=== PATIENT | male | born 2000 | race Two or more races ===

== ENCOUNTER → 2019-02-12 00:02 | Emergency (ER) | payer OTHER ==
--- NOTE | 2019-02-12 02:18 | ED ---
Upper Extremity Pain - HPI Summary HPI Summary: A 18 y/o male presents to [facility] with a chief complaint of right thumb pain the night of 02/11/19. He reports that he was playing basketball when he jammed his finger. At triage he rated his pain as a 4/10 in severity. The patient has no other complaints. - History of Current Complaint Chief Complaint: EDExtremityUpper Stated Complaint: "RIGHT THUMB INJURY" PER PT Time Seen by Provider: 02/12/19 01:58 Hx Obtained From: Patient Mechanism Of Injury: Other - jammed while playing basketball Onset/Duration: Started Hours Ago, Still Present Timing: Constant, Lasting Hours Severity Initially: Moderate Severity Currently: Moderate Pain Location: Finger - right thumb Character: Unable to Describe Aggravating Factor(s): Nothing Alleviating Factor(s): Nothing Associated Signs & Symptoms: Negative: Fever - Allergies/Home Medications Allergies/Adverse Reactions: Allergies Allergy/AdvReac Type Severity Reaction Status Date / Time codeine Allergy Vomiting Verified 02/12/19 00:08 Home Medications: Home Medications NK [No Home Medications Reported] 02/12/19 [History Confirmed 02/12/19] PMH/Surg Hx/FS Hx/Imm Hx Endocrine/Hematology History: Denies: Hx Diabetes Cardiovascular History: Denies: Hx Hypertension Sensory History: Denies: Hx Deafness - Surgical History Surgery Procedure, Year, and Place: none reported Infectious Disease History: No Infectious Disease History: Reports: Traveled Outside the in Last 30 Days - [facility] - Family History Known Family History: Positive: Diabetes Negative: Hypertension - Social History Alcohol Use: None Substance Use Type: Reports: None Smoking Status (MU): Never Smoked Tobacco Review of Systems Negative: Fever Musculoskeletal: Other - positive: right thumb pain All Other Systems Reviewed And Are Negative: Yes Physical Exam - Summary Physical Exam Summary: VITAL SIGNS: Reviewed. GENERAL: Patient is a well-developed and nourished MALE who is lying comfortable in the stretcher. Patient is not in any acute respiratory distress. HEAD AND FACE: No signs of trauma. No ecchymosis, hematomas or skull depressions. No sinus tenderness. EYES: PERRLA, EOMI x 2, No injected conjunctiva, no nystagmus. EARS: Hearing grossly intact. Ear canals and tympanic membranes are within normal limits. MOUTH: Oropharynx within normal limits. NECK: Supple, trachea is midline, no adenopathy, no JVD, no carotid bruit, no c- spine tenderness, neck with full ROM. CHEST: Symmetric, no tenderness at palpation LUNGS: Clear to auscultation bilaterally. No wheezing or crackles. CVS: Regular rate and rhythm, S1 and S2 present, no murmurs or gallops appreciated. ABDOMEN: Soft, non-tender. No signs of distention. No rebound no guarding, and no masses palpated. Bowel sounds are normal. EXTREMITIES: Tenderness over right snuff box. FROM in all major joints, no edema , no cyanosis or clubbing. NEURO: Alert and oriented x 3. No acute neurological deficits. Speech is normal and follows commands. SKIN: Dry and warm Triage Information Reviewed: Yes Vital Signs On Initial Exam: Initial Vitals Temp Pulse Resp BP Pulse Ox 98.8 F 55 16 120/83 99 02/12/19 00:07 02/12/19 00:07 02/12/19 00:07 02/12/19 00:07 02/12/19 00:07 Vital Signs Reviewed: Yes Diagnostics - Vital Signs Vital Signs Temp Pulse Resp BP Pulse Ox 02/12/19 00:07 98.8 F 55 16 120/83 99 - Laboratory Lab Statement: Any lab studies that have been ordered have been reviewed, and results considered in the medical decision making process. - Radiology thumb x-ray Radiology Interpretation Completed By: ED Physician Summary of Radiographic Findings: no fracture. Pending official imaging report. hand x-ray Radiology Interpretation Completed By: ED Physician Summary of Radiographic Findings: Questionable nondisplaced scaphoid fracture. Pending official imaging report. - CT Upper extremity CT Interpretation Completed By: Radiologist Summary of CT Findings: Unremarkable CT of the right wrist. No fracture or dislocation. ED physician has reviewed this imaging report. Course/Dx - Course Course Of Treatment: A 18 y/o male presents to [facility] with a chief complaint of right thumb pain the night of 02/11/19. He reports that he was playing basketball when he jammed his finger. At triage he rated his pain as a 4/10 in severity. The patient has no other complaints. The physical exam revealed tenderness over right snuff box. Thumb x-ray showed no fracture. Hand x-ray showed. Possible nondisplaced scaphoid fracture. Upper extremity CT impression: Unremarkable CT of the right wrist. No fracture or dislocation. The patient will be discharged home with a diagnosis of contusion. The patient is agreeable with this plan. - Diagnoses Provider Diagnoses: Contusion Discharge - Sign-Out/Discharge Documenting (check all that apply): Patient Departure - DC Patient Received Moderate/Deep Sedation with Procedure: No - Discharge Plan Condition: Stable Disposition: HOME Patient Education Materials: Contusion in Adults (ED) Forms: *School Release Referrals: Venus Sarkar [facility] [Primary Care Provider] - (1-2 days) Additional Instructions: RETURN TO THE EMERGENCY DEPARTMENT FOR CHANGING OR WORSENING SYMPTOMS. FOLLOW UP WITH PCP IN 1-2 DAYS. - Billing Disposition and Condition Condition: STABLE Disposition: Home - Attestation Statements Document Initiated by Ankit: Yes Documenting Scribe: Gonsalo Handley Provider For Whom Ankit is Documenting (Include Credential): Moises Olivarez MD Scribe Attestation: Gonsalo Hidalgo scribed for Mosies Olivarez MD on 02/12/19 at 0618. Scribe Documentation Reviewed: Yes Provider Attestation: The documentation as recorded by the Gonsalo mccurdy accurately reflects the service I personally performed and the decisions made by Vicente robledo MD Status of Scribe Document: Viewed
[2019-02-12 05:23] VITALS: BP 0/0
== END | disposition home or self-care (01) ==
LOC: ED 00:02
DX: S60.011A Contusion of right thumb without damage to nail, initial encounter (principal); W23.0XXA Caught, crushed, jammed, or pinched between moving objects, initial encounter; Y93.67 Activity, basketball; Y92.310 Basketball court as the place of occurrence of the external cause; Z88.5 Allergy status to narcotic agent
CPT/HCPCS: 99282